=== PATIENT | female | born 1975 | race Caucasian/White ===

== ENCOUNTER 2019-03-18 13:38 | Outpatient (CLI) | payer OTHER ==
--- NOTE | 2019-03-19 09:04 | Mammography Report ---
Reason: BREAST CA SCREEN Procedure Date: 03/18/2019 Accession Number: [id number] / [id number] Procedure: KATHERINE - Screening Mammo w/Peter CPT Code: FULL RESULT: EXAM: Screening Mammo w/Peter DATE: 03/18/2019 2:13 PM CLINICAL HISTORY: Baseline screening mammogram. No reported risk factors. TECHNIQUE: (B) - Bilateral CC and MLO views were obtained. COMPARISON: None PARENCHYMAL PATTERN: (D) - The breast(s) demonstrate(s) heterogeneously dense fibroglandular parenchyma. FINDINGS: There is a grouping of calcifications in the left upper outer breast approximately 12 cm from the nipple with an associated focal asymmetry best seen on the left MLO 3-D image 29 and to a lesser degree on the left CC 3-D image 30. This requires additional spot magnified views on the left breast for clarification and possibly focused ultrasound of the left breast. There are no suspicious masses, calcifications, or areas of distortion in the right breast. IMPRESSION: Incomplete examination. BI-RADS category 0. RECOMMENDATION: (ADDMU) - Additional views using both Mammography and Ultrasound recommended. Left breast spot magnification and left breast ultrasound. BI-RADS CATEGORY: (0) - Incomplete Examination - need additional evaluation. STANDARD QUALIFYING STATEMENTS: 1. This examination was not reviewed with the aid of Computer-Aided Detection (CAD). 2. A negative or benign imaging report should not preclude biopsy if clinically suspicious findings are present. 3. Dense breasts may obscure an underlying neoplasm. 4. This examination was reviewed with the aid of 3D breast imaging (tomosynthesis).
== END 2019-03-18 13:39 | disposition home or self-care (01) ==
LOC: DI 13:38
PROVIDERS: ATTEND Physician Assistant Medical
DX: Z12.31 Encounter for screening mammogram for malignant neoplasm of breast (principal)
CPT/HCPCS: 77063; 77067

== ENCOUNTER 2019-03-25 11:26 | Outpatient (CLI) | payer OTHER ==
--- NOTE | 2019-03-25 14:14 | Mammography Report ---
Reason: ABNORMAL MAMMOGRAM Procedure Date: 03/25/2019 Accession Number: [id number] / [id number] Procedure: KATHERINE - Diag Special Views Dig LT CPT Code: FULL RESULT: EXAM: Diag Special Views Dig LT DATE: 03/25/2019 1:33 PM CLINICAL HISTORY: Follow-up abnormal mammogram 03/18/2019 TECHNIQUE: (L) - Left magnification and true lateral views were obtained. COMPARISON: 03/18/2019 FINDINGS: Scattered punctate round calcifications are seen loosely grouped in the left upper outer quadrant. No definite abnormal soft tissue density is appreciated. IMPRESSION: Probably Benign. BI-RADS category 3. RECOMMENDATION: (6MOS) - Recommend 6 month follow-up exam. Left breast. BI-RADS CATEGORY: (3) - Probably Benign. STANDARD QUALIFYING STATEMENTS: 1. This examination was not reviewed with the aid of Computer-Aided Detection (CAD). 2. A negative or benign imaging report should not preclude biopsy if clinically suspicious findings are present. 3. Dense breasts may obscure an underlying neoplasm. 4. This examination was reviewed with the aid of 3D breast imaging (tomosynthesis).
== END 2019-03-25 11:27 | disposition home or self-care (01) ==
LOC: DI 11:26
PROVIDERS: ATTEND Physician Assistant Medical
DX: R92.8 Other abnormal and inconclusive findings on diagnostic imaging of breast (principal)

== ENCOUNTER 2024-08-12 10:17 | Emergency (ER) | payer OTHER ==
--- NOTE | 2024-08-12 10:36 | ED Physician Documentation ---
History of Present Illness - Stated complaint Stated Complaint: RT SIDE FACE PUFFY/ITCHY - Chief complaint Chief Complaint: Heent - History obtained from History obtained from: Patient - Additonal information Additional information: She developed lesions on her right forehead about 4 to 5 days ago with puffiness on that side of her face. She was seen at the urgent care and it was not clear to them if she had shingles versus an infection and was put on Keflex and famciclovir. She has not been able to fill the famciclovir as the pharmacy did not have it. Lesions have progressed as well as the swelling since then. PD PAST MEDICAL HISTORY - Past Medical History Past Medical History: Yes Cardiovascular: Hypertension, High cholesterol - Past Surgical History Past Surgical History: No - Present Medications Home Medications: Ambulatory Orders Medication Instructions Recorded Confirmed Acyclovir 800 mg PO 5XD #50 tablet 08/12/24 HYDROcod/ACETAM 5/325 [[place] 5/325] 1 - 2 tab PO Q6H PRN #15 tablet 08/12/24 predniSONE [Deltasone] 20 mg PO [id number] #21 tab 08/12/24 - Allergies Allergies/Adverse Reactions: Allergies Allergy/AdvReac Type Severity Reaction Status Date / Time lisinopril Allergy Hives Verified 08/12/24 10:27 - Social History Does the pt smoke?: No Smoking Status: Never smoker PD ED PE NORMAL - Vitals Vital signs reviewed: Yes - General General: Alert and oriented X 3, No acute distress - HEENT HEENT: PERRL, EOMI, Other (She has shingles on the right forehead with some puffiness of the eyelid but no visual deficit or conjunctival inflammation.) - Neuro Neuro: Alert and oriented X 3, 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 Advised her she could probably stop the Keflex. This really does not look bacterial. She was unable to fill famciclovir due to the pharmacy not having it, as such I will prescribe the much more commonly obtainable acyclovir. We talked about work and contagiousness. 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 Departure - Departure Disposition: 01 Home, Self Care Clinical Impression: Shingles Qualifiers: Herpes zoster complications: without complications Qualified Code(s): B02.9 - Zoster without complications Condition: Good Record reviewed to determine appropriate education?: Yes Instructions: ED Shingles Prescriptions: Acyclovir 800 mg PO 5XD #50 tablet predniSONE [Deltasone] 20 mg PO [id number] #21 tab HYDROcod/ACETAM 5/325 [[place] 5/325] 1 - 2 tab PO Q6H PRN #15 tablet PRN Reason: Pain Comments: I sent your prescriptions electronically to [facility] in [place]. If your vision starts to change other than just your lid being swollen we would need to see you again. Return for new or worsening symptoms. Follow-up with your doctor in about a week. I am prescribing a short course of narcotic pain medication for you. These are potentially dangerous and addictive medications that should be used carefully. These medications may constipate you. Take an jmbg-rne-orlmjjr stool softener (docusate) twice daily with plenty of water while taking these medications. If you go 24 hours without a bowel movement, take lbuq-[id number]-[id number] miralax, per package instructions. Do not drink or drive while taking these medications. If you received narcotic or sedating medications while in the emergency department, do not drive for 24 hours. Store this medication in a safe, secure place and out of reach of children. It is a violation of federal law to give or sell this medication to another person or to use in a manner other than prescribed. The ED will not refill narcotic prescriptions, including prescriptions lost or stolen. To dispose of unwanted medications: 1. [facility] provides a drop box for medication in pill form only (no liquids) 8:00 am to 4:30 p.m. Monday-Monday in the lobby of the [facility], [address] [place] [address]. Empty pills into ziplock bag before disposal. Call [phone] for information. 2.[employer] is a free service available to all [facility] residents. Go to [email or web address] Note that many narcotic pain relievers also contain Tylenol/acetaminophen. Please ensure that your total dose of acetaminophen from all sources does not exceed 3 g (3000 mg) per day. Forms: PCP List
[2024-08-12 10:41] VITALS: BP 151/101; O2SAT 99
== END 2024-08-12 10:39 | disposition home or self-care (01) ==
LOC: ED 10:17
DX: B02.9 Zoster without complications (principal)
CPT/HCPCS: 99283